=== PATIENT | female | born 1990 | race Caucasian/White ===

== ENCOUNTER 2021-09-04 16:30 | Emergency (ER) | payer OTHER ==
[~2021-09-04] VITALS: Ht 167.6 cm; Wt 49.9 kg
[~2021-09-04 16:30] MED LIST: IBUP200C97 PO
[2021-09-04 16:34] VITALS: BP 109/84
--- NOTE | 2021-09-04 16:49 | NUR ---
PT AMB TO BED 2. REPORTED TO OFFICER PAV: [place] [employer] [employer].
[2021-09-04] MEDS ORDERED: LIDOCAINE MPF 1% 10 MG/ML VIAL INJ ONE ×2 (16:50→17:35)
[2021-09-04] MEDS ORDERED: KETOROLAC 30 MG/ML VIAL IM ONE (16:50)
[2021-09-04] MEDS ORDERED: BACITRACIN OINT 500 UNITS/GM PKT TP ONE (16:50)
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
--- NOTE | 2021-09-04 17:40 | NUR ---
[place] [employer] BEDSIDE SPEAKING WITH PATIENT
[2021-09-04] MEDS ORDERED: IBUP-1842 PO (18:08)
[2021-09-04] MEDS ORDERED: BACI1PAC6 TP (18:08)
--- NOTE | 2021-09-04 18:08 | NUR ---
APPLIED BACITRACIN TO PT"S LAC AND DRESSED WITH ROLLED UP 4X4 IN HALF AND TAPED BEHIDE EAR. PA AND RN NOTIFIED.
[2021-09-04 18:26] VITALS: BP 109/84
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
== END 2021-09-04 18:26 | disposition home or self-care (01) ==
LOC: MED 16:30
DX: S01.81XA Laceration without foreign body of other part of head, initial encounter (principal); Z79.2 Long term (current) use of antibiotics; Z79.1 Long term (current) use of non-steroidal anti-inflammatories (NSAID); X99.8XXA Assault by other sharp object, initial encounter; Y93.89 Activity, other specified; Y92.89 Other specified places as the place of occurrence of the external cause; Y99.8 Other external cause status
CPT/HCPCS: 12011; 90471; 90715; 96372; 99284; J1885; J2001